=== PATIENT | female | born 1960 ===

== ENCOUNTER 2021-11-14 09:24 | Outpatient (CLI) | payer OTHER ==
[~2021-11-14 09:24] MED LIST: ATENOLOL50 MG PO; BENADRYL50 MG PO; CLONAZEPAM1 MG PO; DIOVAN HCT 160-1 TAB PO; TENORMIN100 MG PO
== END 2021-11-14 09:32 | disposition home or self-care (01) ==
LOC: SONOGRAMA 09:24
PROVIDERS: ATTEND Specialist
DX: N63.0 Unspecified lump in unspecified breast (principal); N64.9 Disorder of breast, unspecified; N64.4 Mastodynia

== ENCOUNTER 2021-11-16 10:25 | Outpatient (CLI) | payer OTHER | END 2021-11-16 10:28 | disposition home or self-care (01) | LOC: MAMO-SONO 10:25 | PROVIDERS: ATTEND Obstetrics & Gynecology | DX: N60.11 Diffuse cystic mastopathy of right breast (principal); N60.12 Diffuse cystic mastopathy of left breast ==